=== PATIENT | female | born 1960 | race Hispanic/Latino ===

== ENCOUNTER → 2024-11-17 | Day surgery (SDC) | payer OTHER ==
[2024-11-14 09:09] LABS: BASOPHILS % 0.8 % (0.0-1.0); EOSINOPHILS % 18.4 % (0.0-6.0); LYMPHOCYTES % 26.5 % (18.0-39.1); MONOCYTES % 7.0 % (4.4-11.3); NEUTROPHILS % 46.7 % (38.7-80.0); RED CELL DISTRIBUTION WIDTH 14.9 % (11.7-14.4)
[~2024-11-17] MED LIST: ALBUTEROL0.63 MG/3 NEB; AMLODIPINE BESYL5 MG PO; BUTALBITAL25 GM PO; CALCIUM ACETAT667 MG PO; DULERA 100 MCG/13 GM; GLUCAGON FOR INJ 1 MG VIAL ONE; HYDROCHLOROTHIA25 MG PO; LIDOCAINE HCL 2% LOCAL INJ 5 ML SDV VIAL INJ ONE; MIDAZOLAM HCL 2 MG/2 ML VIAL ONE; MONTELUKAST SOD10 MG PO; MULTI-VITAMIN1 EACH PO; PREDNISONE20 MG PO; PROPOFOL IV EMULSION 10 MG/ML 20 ML VIAL ONE; SPIRIVA RESPIMAT4 GM INH; THEOPHYLLI80 MG/151 PO; VENTOLIN HFA18 GM INH
[2024-11-17] MEDS: ALBUTEROL SULF 0.083% NEB SOLN 3 ML NEB ONE (09:25)
[2024-11-17] MEDS: LACTATED RINGER'S 1,000 ML ONE (09:40)
[2024-11-17 10:52] VITALS: TEMP 97.7
[2024-11-17 11:05] VITALS: BP 116/78; PULSE 90; RESP 16; O2SAT 95
== END | disposition home or self-care (01) ==
LOC: OR 08:44
PROVIDERS: ATTEND Internal Medicine Gastroenterology
DX: Z12.11 Encounter for screening for malignant neoplasm of colon (principal); D12.2 Benign neoplasm of ascending colon; D12.3 Benign neoplasm of transverse colon; K57.30 Diverticulosis of large intestine without perforation or abscess without bleeding; K64.8 Other hemorrhoids; J45.909 Unspecified asthma, uncomplicated; R03.0 Elevated blood-pressure reading, without diagnosis of hypertension; E78.5 Hyperlipidemia, unspecified; E66.01 Morbid (severe) obesity due to excess calories; Z01.810 Encounter for preprocedural cardiovascular examination; Z01.812 Encounter for preprocedural laboratory examination; Z79.899 Other long term (current) drug therapy; Z99.81 Dependence on supplemental oxygen; Z68.43 Body mass index [BMI] 50.0-59.9, adult
CPT/HCPCS: 36415; 45384; 45385; 85025; 93005; J1610; J2003; J2250; J2704; J7121